=== PATIENT | male | born 1955 | race African-American/Black ===

== ENCOUNTER 2020-03-17 07:51 | Emergency (ER) | payer OTHER, MEDICAID ==
[~2020-03-17] VITALS: Ht 170.2 cm; Wt 95.3 kg
[2020-03-17 07:53] VITALS: BP 132/81
--- NOTE | 2020-03-17 08:00 | NUR ---
DR DEL ROSARIO AT BEDSIDE EVALUATING PT.
--- NOTE | 2020-03-17 08:04 | NUR ---
BIB BY [facility] [facility] FROM [facility] C/O RIGHT FACE SWELLING X THIS AM. PT AOX 4 , AFIBRILE , AMBULATORY WITH STEADY GAIT, DENIES SOB AND PAIN , SCE , CBS , FLAT SOFT ABDOMEN. MED HX: DM, HTN,HLD,SCHIZOPHRENIA, TOBACCO ABUSE, OBESITY, VIT D DEFICIENCY
--- NOTE | 2020-03-17 08:05 | NUR ---
PT AMBULATED TO ER BED 07.
[2020-03-17] MEDS ORDERED: NACL 0.9% 1,000 ML IV ONE (08:08)
[2020-03-17] MEDS ORDERED: FAMOTIDINE 20 MG/2 ML VIAL IVP ONE (08:10)
[2020-03-17] MEDS ORDERED: methylPREDNISolone SS 125 MG in WATER STERILE 2 ML IVP ONE (08:10)
[2020-03-17] MEDS ORDERED: diphenhydrAMINE 50 MG/ML VIAL IVP ONE (08:10)
[2020-03-17] MEDS ORDERED: WATER STERILE 10 ML MC ONE (08:19)
[2020-03-17] MEDS ORDERED: methylPREDNISolone SS 125 MG/2 ML VIAL ONE (08:19)
--- NOTE | 2020-03-17 08:25 | NUR ---
KIRSTIN WISE INSERTED IV AND ADMINISTERED MEDS.
[2020-03-17 08:36] LABS: BASOPHILS # (AUTO) 0.1 K/uL (0.00-0.22); BASOPHILS % (AUTO) 1.9 % (0.0-2.0); EOSINOPHILS # (AUTO) 0.1 K/uL (0-0.4); EOSINOPHILS % (AUTO) 1.3 % (0.0-4.0); HEMATOCRIT 29.6 % (36-52); HEMOGLOBIN 8.6 g/dL (12.0-18.0); LYMPHOCYTES # (AUTO) 1.6 K/uL (2.0-11.5); MEAN CORPUSCULAR HEMOGLOBIN 22 pg (27-31); MEAN CORPUSCULAR HGB CONC 29 g/dL (33-37); MONOCYTES # (AUTO) 0.4 K/uL (0.8-1.0); MONOCYTES % (AUTO) 5.9 % (1.7-9.3); NEUTROPHILS # (AUTO) 5.1 K/uL (1.8-7.7); NEUTROPHILS % (AUTO) 68.9 % (42.2-75.2); PLATELET COUNT (AUTO) 333 K/uL (140-450); RED BLOOD CELL COUNT(AUTO) 3.84 MIL/uL (4.20-6.10); RED CELL DISTRIBUTION WIDTH 18.5 % (11.6-13.7); WHITE BLOOD COUNT (AUTO) 7.3 K/uL (4.8-10.8)
--- NOTE | 2020-03-17 09:30 | NUR ---
PT AMBULATED TO RESTROOM WITH STEADY GAIT.
--- NOTE | 2020-03-17 09:35 | NUR ---
PT BACK TO BED.
--- NOTE | 2020-03-17 09:58 | NUR ---
PT COMFORTABLE IN BED SIDE RAILS UP X 1 AND LOCK.
--- NOTE | 2020-03-17 11:40 | NUR ---
PT COMFORTABLE IN BED WITH STABLE VS.
--- NOTE | 2020-03-17 11:42 | NUR ---
STARTED PLASMA TRASFUSION VERIFIED BAG WITH KIRSTIN SEP AND CONFIRMED.
--- NOTE | 2020-03-17 12:42 | NUR ---
FIRST UNIT OF PLASMA DONE PT WITH STABLE V/S NO COMPLAINT.
[2020-03-17 12:56] LABS: ANION GAP 18.1 (8-16); CARBON DIOXIDE 24.4 mmol/L (21-32); CREATININE 1.8 mg/dL (0.6-1.3); POTASSIUM 3.5 mmol/L (3.5-5.1)
--- NOTE | 2020-03-17 13:11 | NUR ---
STARTED 2ND UNIT OF PLASMA.
--- NOTE | 2020-03-17 13:11 | NUR ---
SECOND UNIT OF PLASMA VERIFIED AND CROSS CHECK WITH KIRSTIN HENDERSON .
--- NOTE | 2020-03-17 13:34 | NUR ---
GAVE REPORT TO KIRSTIN HENDERSON .
[2020-03-17 14:25] VITALS: BP 130/74
--- NOTE | 2020-03-17 14:27 | NUR ---
Patient discharged with v/s stable. Written and verbal after care instructions given and explained. Patient verbalized understanding. Ambulatory with to alf. All questions addressed prior to discharge. Advised to follow up with PMD. Michelle sanchez spoke to matilde to pickup pt at the [facility].
== END 2020-03-17 14:27 | disposition home or self-care (01) ==
LOC: MED 07:51
DX: T78.3XXA Angioneurotic edema, initial encounter (principal); F17.210 Nicotine dependence, cigarettes, uncomplicated; E11.9 Type 2 diabetes mellitus without complications; I10 Essential (primary) hypertension; E78.00 Pure hypercholesterolemia, unspecified; F20.89 Other schizophrenia
CPT/HCPCS: 36415; 80048; 85025; 86886; 86900; 86901; 96374; 96375; 99284; J1200; J2930; J3490; J7030; P9017; 86920

== ENCOUNTER 2022-08-26 21:44 | Emergency (ER) | payer OTHER, MEDICAID ==
[~2022-08-26] VITALS: Ht 180.3 cm; Wt 94.3 kg
[2022-08-26 21:53] VITALS: BP 138/87
--- NOTE | 2022-08-26 22:54 | NUR ---
Patient taken to bed 2.
--- NOTE | 2022-08-26 22:57 | NUR ---
Patient lying in bed, alert, chest rise and fall symmetrical, no c/o ain or s/s of discomfort, seizure pads in place.
--- NOTE | 2022-08-26 23:17 | NUR ---
Patient given sandwich and fluids. Patient eating and drinking fluids well.
[2022-08-26 23:37] LABS: BASOPHILS % (AUTO) 0.3 % (0.0-2.0); EOSINOPHILS % (AUTO) 0.3 % (0.0-4.0); HEMATOCRIT 45.3 % (36-52); HEMOGLOBIN 14.9 g/dL (12.0-18.0); LYMPHOCYTES # (AUTO) 0.8 K/uL (2.0-11.5); LYMPHOCYTES % (AUTO) 9.5 % (20.5-51.1); MEAN CORPUSCULAR HEMOGLOBIN 33 pg (27-31); MEAN CORPUSCULAR HGB CONC 33 g/dL (33-37); MEAN CORPUSCULAR VOLUME 98.7 fL (80-94); MONOCYTES # (AUTO) 0.2 K/uL (0.8-1.0); MONOCYTES % (AUTO) 2.9 % (1.7-9.3); NEUTROPHILS # (AUTO) 7.1 K/uL (1.8-7.7); PLATELET COUNT (AUTO) 235 K/uL (140-450); RED BLOOD CELL COUNT(AUTO) 4.58 MIL/uL (4.20-6.10); RED CELL DISTRIBUTION WIDTH 13.4 % (11.6-13.7); WHITE BLOOD COUNT (AUTO) 8.2 K/uL (4.8-10.8)
[2022-08-26 23:48] LABS: CHLORIDE 104 mmol/L (98-107); POTASSIUM 4.3 mmol/L (3.5-5.1); SODIUM SERUM 143 mmol/L (136-145)
--- NOTE | 2022-08-26 23:50 | NUR ---
Pt taken to CT
--- NOTE | 2022-08-26 23:52 | NUR ---
Patient lying in bed, alert, chest rise and fall symmetrical, no c/o ain or s/s of discomfort, seizure pads in place.
[2022-08-27 00:08] LABS: ALBUMIN 3.5 g/dL (3.4-5.0); ANION GAP 13.4 (8-16); ASPARTATE AMINOTRANSFERASE 18 U/L (15-37); CARBON DIOXIDE 29.9 mmol/L (21-32); CREATININE 1.2 mg/dL (0.6-1.3); GFR ARICAN-AMERICAN 78 mL/min (>90); GLUCOSE 118 mg/dL (74-106); TOTAL BILIRUBIN 0.2 mg/dL (0.0-1.0); UREA NITROGEN, BLOOD 10 mg/dL (7-18)
--- NOTE | 2022-08-27 00:32 | NUR ---
Patient lying in bed, alert, chest rise and fall symmetrical, no c/o ain or s/s of discomfort, seizure pads in place.
[2022-08-27 00:33] LABS: APPEARANCE,URINE CLEAR (CLEAR); BILIRUBIN,URINE NEGATIVE (NEGATIVE); BLOOD, URINE NEGATIVE (NEGATIVE); COLOR,URINE YELLOW (YELLOW); LEUKOCYTE ESTERASE ,URINE NEGATIVE (NEGATIVE); NITRITE, URINE NEGATIVE (NEGATIVE); UGLUCOSE TRACE (NEGATIVE)
--- NOTE | 2022-08-27 02:29 | NUR ---
Patient lying in bed, A/Ox4, chest rise and fall symmetrical, no c/o ain or s/s of discomfort, seizure pads in place.
--- NOTE | 2022-08-27 02:32 | NUR ---
Patient discharged with v/s stable. Written and verbal after care instructions given and explained. Patient verbalized understanding. Ambulatory with steady gait. All questions addressed prior to discharge. Advised to follow up with PMD.
[2022-08-27 02:35] VITALS: BP 133/72
== END 2022-08-27 02:35 | disposition home or self-care (01) ==
LOC: MED 21:44
DX: F10.129 Alcohol abuse with intoxication, unspecified (principal); S09.90XA Unspecified injury of head, initial encounter; R07.9 Chest pain, unspecified; Y90.9 Presence of alcohol in blood, level not specified
CPT/HCPCS: 36415; 70450; 71045; 80053; 81003; 83605; 84484; 85025; 87040; 87086; 93005; 99285; G0482

== ENCOUNTER 2023-09-29 13:03 | Inpatient (IN) | payer OTHER, MEDICAID ==
[~2023-09-29] VITALS: Ht 175.3 cm; Wt 75.7 kg
[2023-09-29] MEDS: LEVOFLOXACIN 750 MG/D5W PREMIX 150 ML IV SCH (00:15)
[2023-09-29 13:35] VITALS: BP 105/67; PULSE 88; RESP 17; TEMP 97.6; O2SAT 98
[2023-09-29 14:53] LABS: BASOPHILS % (AUTO) 0.2 % (0.0-2.0); HEMATOCRIT 32.2 % (36-52); LYMPHOCYTES # (AUTO) 1.2 K/uL (2.0-11.5); LYMPHOCYTES % (AUTO) 6.5 % (20.5-51.1); MEAN CORPUSCULAR HEMOGLOBIN 28 pg (27-31); MEAN CORPUSCULAR HGB CONC 31 g/dL (33-37); MEAN CORPUSCULAR VOLUME 90.1 fL (80-94); MONOCYTES # (AUTO) 1.4 K/uL (0.8-1.0); MONOCYTES % (AUTO) 7.6 % (1.7-9.3); NEUTROPHILS # (AUTO) 15.5 K/uL (1.8-7.7); NEUTROPHILS % (AUTO) 85.7 % (42.2-75.2); PLATELET COUNT (AUTO) 277 K/uL (140-450); RED BLOOD CELL COUNT(AUTO) 3.58 MIL/uL (4.20-6.10); RED CELL DISTRIBUTION WIDTH 18.6 % (11.6-13.7); WHITE BLOOD COUNT (AUTO) 18.1 K/uL (4.8-10.8)
[2023-09-29 15:44] LABS: ALBUMIN 2.4 g/dL (3.4-5.0); BILIRUBIN,DIRECT 0.3 mg/dL (0.0-0.3); TOTAL BILIRUBIN 0.6 mg/dL (0.0-1.0); TOTAL PROTEIN, SERUM 8.6 g/dL (6.4-8.2)
[2023-09-29 15:53] LABS: ANION GAP 14.9 (8-16); CALCIUM 9.5 mg/dL (8.5-10.1); CARBON DIOXIDE 27.5 mmol/L (21-32); CREATININE 1.1 mg/dL (0.6-1.3); POTASSIUM 4.4 mmol/L (3.5-5.1)
[2023-09-29 17:22] VITALS: O2SAT 98
[2023-09-29] MEDS: MIDAZOLAM 2 MG/2 ML VIAL IM ONE ×3 (17:39→19:28)
[2023-09-29] MEDS: OLANZapine 10 MG VIAL IM ONE (17:40)
[2023-09-29 18:18] LABS: FLU A ANTIGEN negative (NEGATIVE); FLU B ANTIGEN NEGATIVE (NEGATIVE)
[2023-09-29] MEDS ORDERED: OLANZapine 10 MG VIAL IM ONE (19:05)
[2023-09-29] MEDS ORDERED: diphenhydrAMINE 50 MG/ML VIAL IVP ONE (19:05)
[2023-09-29] MEDS ORDERED: diphenhydrAMINE 50 MG/ML VIAL IM ONE (19:15)
[2023-09-29] MEDS: NACL 0.9% 1,000 ML IV ONE ×2 (19:25→20:49)
[2023-09-29 19:30] VITALS: O2SAT 98
[2023-09-29] MEDS: diphenhydrAMINE 50 MG/ML VIAL IVP ONE (19:39)
[2023-09-29] MEDS: AZITHROMYCIN 500 MG in DEXTROSE 5% 250 ML IV ONE (21:15)
[2023-09-29] MEDS ORDERED: HYDROcodone/APAP 5/325 MG 1 TAB TAB PO PRN (21:35)
[2023-09-29] MEDS ORDERED: LORazepam 1 MG TAB PO PRN ×2 (21:35→21:45)
[2023-09-29] MEDS ORDERED: ZOLPIDEM 5 MG TAB PO PRN ×2 (21:35→21:45)
[2023-09-29] MEDS ORDERED: NACL 0.9% 1,000 ML IV SCH (21:35)
[2023-09-29] MEDS ORDERED: ONDANSETRON 4 MG/2 ML VIAL IVP PRN ×2 (21:35→21:45)
[2023-09-29] MEDS ORDERED: LEVOFLOXACIN 750 MG/D5W PREMIX 150 ML IV SCH (21:40)
[2023-09-29 22:00] VITALS: O2SAT 98
[2023-09-29] MEDS ORDERED: cefTRIAXone 1,000 MG VIAL ONE (23:02)
[2023-09-30] VITALS (7 sets, daily range): BP systolic 93–110; BP diastolic 67–79; PULSE 72–86; RESP 17–20; TEMP 96.9–98.4; O2SAT 81–98
[2023-09-30] MEDS ORDERED: AZITHROMYCIN 500 MG INJ VIAL IV ONE (00:07)
[2023-09-30 04:46] LABS: BASOPHILS % (AUTO) 0.2 % (0.0-2.0); EOSINOPHILS % (AUTO) 0.1 % (0.0-4.0); HEMATOCRIT 30.3 % (36-52); HEMOGLOBIN 9.6 g/dL (12.0-18.0); LYMPHOCYTES % (AUTO) 13.1 % (20.5-51.1); MEAN CORPUSCULAR HEMOGLOBIN 28 pg (27-31); MEAN CORPUSCULAR HGB CONC 32 g/dL (33-37); MONOCYTES # (AUTO) 0.6 K/uL (0.8-1.0); MONOCYTES % (AUTO) 8.5 % (1.7-9.3); NEUTROPHILS # (AUTO) 5.8 K/uL (1.8-7.7); NEUTROPHILS % (AUTO) 78.1 % (42.2-75.2); PLATELET COUNT (AUTO) 247 K/uL (140-450); RED CELL DISTRIBUTION WIDTH 18.1 % (11.6-13.7); WHITE BLOOD COUNT (AUTO) 7.4 K/uL (4.8-10.8)
[2023-09-30] MEDS: NACL 0.9% 1,000 ML IV SCH (05:00)
[2023-09-30] MEDS ORDERED: ALBU0.0912 IH (05:21)
[2023-09-30] MEDS ORDERED: METO25TA PO (05:21)
[2023-09-30] MEDS ORDERED: [UNRECOGNIZED DRUG - CODE] PO (05:21)
[2023-09-30] MEDS ORDERED: RISP0.5T3 PO (05:21)
[2023-09-30] MEDS ORDERED: QUET200T43 PO (05:21)
[2023-09-30] MEDS ORDERED: ACET-2619 PO (05:21)
[2023-09-30] MEDS ORDERED: FERR-21 PO (05:21)
[2023-09-30] MEDS ORDERED: DIVA250T PO (05:21)
[2023-09-30] MEDS ORDERED: PRAV20TA5 PO (05:21)
[2023-09-30] MEDS ORDERED: BENA20TA PO (05:21)
[2023-09-30] MEDS ORDERED: METF-346 PO (05:21)
[2023-09-30] MEDS ORDERED: IBUP-1842 PO (05:21)
[2023-09-30] MEDS ORDERED: AMYL-43 PO (05:21)
[2023-09-30 05:45] LABS: ALBUMIN 2.2 g/dL (3.4-5.0); ANION GAP 11.9 (8-16); CALCIUM 8.6 mg/dL (8.5-10.1); CARBON DIOXIDE 28.2 mmol/L (21-32); CREATININE 0.9 mg/dL (0.6-1.3); POTASSIUM 4.1 mmol/L (3.5-5.1); TOTAL BILIRUBIN 0.4 mg/dL (0.0-1.0); TOTAL PROTEIN, SERUM 7.6 g/dL (6.4-8.2)
[2023-09-30] MEDS: DOCUSATE SODIUM 100 MG GELCAP PO SCH (09:00)
[2023-09-30] MEDS ORDERED: DOCUSATE SODIUM 100 MG GELCAP PO SCH (09:00)
[2023-09-30 15:01] LABS: APPEARANCE,URINE CLEAR (CLEAR); BILIRUBIN,URINE NEGATIVE (NEGATIVE); BLOOD, URINE NEGATIVE (NEGATIVE); COLOR,URINE YELLOW (YELLOW); LEUKOCYTE ESTERASE ,URINE NEGATIVE (NEGATIVE); NITRITE, URINE NEGATIVE (NEGATIVE); PROTEIN,URINE NEGATIVE (NEGATIVE); UGLUCOSE NEGATIVE (NEGATIVE)
[2023-10-01] VITALS: BP 95/69; PULSE 81; RESP 16; TEMP 97.4; O2SAT 92
[2023-10-01 04:00] VITALS: BP 98/57; PULSE 78; PULSE 81; RESP 18; TEMP 98.6; O2SAT 94
[2023-10-01 04:07] VITALS: BP 98/57; PULSE 81; RESP 18; TEMP 98.6; O2SAT 94
[2023-10-01 06:43] LABS: BASOPHILS % (AUTO) 0.2 % (0.0-2.0); EOSINOPHILS % (AUTO) 0.1 % (0.0-4.0); HEMATOCRIT 25.7 % (36-52); LYMPHOCYTES # (AUTO) 0.8 K/uL (2.0-11.5); LYMPHOCYTES % (AUTO) 9.7 % (20.5-51.1); MEAN CORPUSCULAR HEMOGLOBIN 28 pg (27-31); MEAN CORPUSCULAR HGB CONC 31 g/dL (33-37); MEAN CORPUSCULAR VOLUME 89.5 fL (80-94); MONOCYTES % (AUTO) 12.3 % (1.7-9.3); NEUTROPHILS # (AUTO) 6.6 K/uL (1.8-7.7); NEUTROPHILS % (AUTO) 77.7 % (42.2-75.2); PLATELET COUNT (AUTO) 246 K/uL (140-450); RED BLOOD CELL COUNT(AUTO) 2.87 MIL/uL (4.20-6.10); RED CELL DISTRIBUTION WIDTH 18.2 % (11.6-13.7); WHITE BLOOD COUNT (AUTO) 8.5 K/uL (4.8-10.8)
[2023-10-01 07:05] LABS: ALBUMIN 1.9 g/dL (3.4-5.0); ANION GAP 9.4 (8-16); CALCIUM 8.5 mg/dL (8.5-10.1); CARBON DIOXIDE 29.6 mmol/L (21-32); TOTAL BILIRUBIN 0.4 mg/dL (0.0-1.0); TOTAL PROTEIN, SERUM 6.5 g/dL (6.4-8.2)
[2023-10-01 08:00] VITALS: BP 103/72; PULSE 69; PULSE 91; RESP 18; TEMP 97.8; O2SAT 98
[2023-10-01] MEDS: PANTOPRAZOLE 40 MG INJ VIAL IVP SCH (08:55)
[2023-10-01 12:07] LABS: AFP (TUMOR MARKER) <1.8 ng/mL (0.0-8.4); CARCINOEMBRYONIC AG 2.4 ng/mL (0.0-4.7)
[2023-10-01 16:00] VITALS: BP 108/76; PULSE 63; RESP 18; TEMP 98.3; O2SAT 95
[2023-10-01 20:00] VITALS: PULSE 84; RESP 18; O2SAT 99
[2023-10-02 04:00] VITALS: BP 116/75; PULSE 65; RESP 18; TEMP 98.9; O2SAT 94
[2023-10-02 07:03] LABS: BASOPHILS % (AUTO) 0.5 % (0.0-2.0); EOSINOPHILS % (AUTO) 0.6 % (0.0-4.0); HEMATOCRIT 27.7 % (36-52); HEMOGLOBIN 8.8 g/dL (12.0-18.0); LYMPHOCYTES % (AUTO) 14.7 % (20.5-51.1); MEAN CORPUSCULAR HEMOGLOBIN 28 pg (27-31); MEAN CORPUSCULAR HGB CONC 32 g/dL (33-37); MEAN CORPUSCULAR VOLUME 89.4 fL (80-94); MONOCYTES # (AUTO) 0.7 K/uL (0.8-1.0); MONOCYTES % (AUTO) 11.2 % (1.7-9.3); NEUTROPHILS # (AUTO) 4.8 K/uL (1.8-7.7); PLATELET COUNT (AUTO) 260 K/uL (140-450); RED CELL DISTRIBUTION WIDTH 18.2 % (11.6-13.7); WHITE BLOOD COUNT (AUTO) 6.5 K/uL (4.8-10.8)
[2023-10-02 07:31] LABS: ALBUMIN 2.1 g/dL (3.4-5.0); ANION GAP 12.5 (8-16); CALCIUM 8.8 mg/dL (8.5-10.1); CARBON DIOXIDE 29.1 mmol/L (21-32); POTASSIUM 3.6 mmol/L (3.5-5.1); TOTAL BILIRUBIN 0.5 mg/dL (0.0-1.0); TOTAL PROTEIN, SERUM 7.2 g/dL (6.4-8.2)
[2023-10-02 08:00] VITALS: PULSE 78; RESP 16; O2SAT 99
[2023-10-02 20:00] VITALS: BP 116/75; PULSE 85; RESP 18; TEMP 98.5; O2SAT 90; O2SAT 99
[2023-10-03 04:00] VITALS: BP 106/67; PULSE 68; RESP 18; TEMP 97.6; O2SAT 90
[2023-10-03 07:02] LABS: BASOPHILS % (AUTO) 0.4 % (0.0-2.0); EOSINOPHILS % (AUTO) 0.3 % (0.0-4.0); HEMATOCRIT 25.1 % (36-52); LYMPHOCYTES # (AUTO) 0.9 K/uL (2.0-11.5); LYMPHOCYTES % (AUTO) 14.4 % (20.5-51.1); MEAN CORPUSCULAR HEMOGLOBIN 28 pg (27-31); MEAN CORPUSCULAR HGB CONC 32 g/dL (33-37); MEAN CORPUSCULAR VOLUME 88.7 fL (80-94); MONOCYTES # (AUTO) 0.7 K/uL (0.8-1.0); MONOCYTES % (AUTO) 11.9 % (1.7-9.3); NEUTROPHILS # (AUTO) 4.6 K/uL (1.8-7.7); PLATELET COUNT (AUTO) 265 K/uL (140-450); RED BLOOD CELL COUNT(AUTO) 2.83 MIL/uL (4.20-6.10); WHITE BLOOD COUNT (AUTO) 6.2 K/uL (4.8-10.8)
[2023-10-03 07:32] LABS: ANION GAP 10.9 (8-16); CALCIUM 8.3 mg/dL (8.5-10.1); POTASSIUM 3.9 mmol/L (3.5-5.1); TOTAL BILIRUBIN 0.4 mg/dL (0.0-1.0); TOTAL PROTEIN, SERUM 6.5 g/dL (6.4-8.2)
[2023-10-03 08:00] VITALS: BP 98/73; PULSE 75; PULSE 77; RESP 18; TEMP 97.1; O2SAT 95
[2023-10-03 16:00] VITALS: BP 96/70; PULSE 75; RESP 18; TEMP 97.6; O2SAT 96
[2023-10-03 20:00] VITALS: BP 105/68; PULSE 71; RESP 18; TEMP 97; O2SAT 94
[2023-10-04 08:00] VITALS: BP 111/75; PULSE 74; PULSE 75; RESP 17; RESP 18; TEMP 98; O2SAT 95; O2SAT 96
[2023-10-04 08:18] LABS: BASOPHILS % (AUTO) 0.7 % (0.0-2.0); EOSINOPHILS % (AUTO) 0.1 % (0.0-4.0); HEMATOCRIT 25.6 % (36-52); HEMOGLOBIN 8.2 g/dL (12.0-18.0); LYMPHOCYTES # (AUTO) 0.9 K/uL (2.0-11.5); MEAN CORPUSCULAR HEMOGLOBIN 28 pg (27-31); MEAN CORPUSCULAR HGB CONC 32 g/dL (33-37); MEAN CORPUSCULAR VOLUME 88.6 fL (80-94); MONOCYTES # (AUTO) 0.8 K/uL (0.8-1.0); MONOCYTES % (AUTO) 12.1 % (1.7-9.3); NEUTROPHILS # (AUTO) 5.1 K/uL (1.8-7.7); NEUTROPHILS % (AUTO) 74.1 % (42.2-75.2); PLATELET COUNT (AUTO) 271 K/uL (140-450); RED BLOOD CELL COUNT(AUTO) 2.89 MIL/uL (4.20-6.10); RED CELL DISTRIBUTION WIDTH 18.8 % (11.6-13.7); WHITE BLOOD COUNT (AUTO) 6.9 K/uL (4.8-10.8)
[2023-10-04 09:46] LABS: ANION GAP 8.6 (8-16); CALCIUM 8.4 mg/dL (8.5-10.1); CARBON DIOXIDE 30.2 mmol/L (21-32); POTASSIUM 3.8 mmol/L (3.5-5.1)
[2023-10-04 09:55] LABS: ALBUMIN 2.1 g/dL (3.4-5.0); TOTAL BILIRUBIN 0.3 mg/dL (0.0-1.0); TOTAL PROTEIN, SERUM 6.7 g/dL (6.4-8.2)
[2023-10-04 16:00] VITALS: BP 117/84; PULSE 79; RESP 17; TEMP 98.5; O2SAT 97
[2023-10-04 20:00] VITALS: BP 144/78; PULSE 78; PULSE 95; RESP 18; TEMP 97.8; O2SAT 96
[2023-10-05 04:00] VITALS: BP 111/79; PULSE 88; RESP 18; TEMP 98.4; O2SAT 94
[2023-10-05 06:45] LABS: BASOPHILS % (AUTO) 0.4 % (0.0-2.0); EOSINOPHILS % (AUTO) 0.1 % (0.0-4.0); HEMATOCRIT 27.2 % (36-52); HEMOGLOBIN 8.7 g/dL (12.0-18.0); LYMPHOCYTES # (AUTO) 1.1 K/uL (2.0-11.5); LYMPHOCYTES % (AUTO) 13.5 % (20.5-51.1); MEAN CORPUSCULAR HEMOGLOBIN 29 pg (27-31); MEAN CORPUSCULAR HGB CONC 32 g/dL (33-37); MEAN CORPUSCULAR VOLUME 88.7 fL (80-94); MONOCYTES % (AUTO) 11.7 % (1.7-9.3); NEUTROPHILS # (AUTO) 6.1 K/uL (1.8-7.7); NEUTROPHILS % (AUTO) 74.3 % (42.2-75.2); PLATELET COUNT (AUTO) 277 K/uL (140-450); RED BLOOD CELL COUNT(AUTO) 3.07 MIL/uL (4.20-6.10); RED CELL DISTRIBUTION WIDTH 18.3 % (11.6-13.7); WHITE BLOOD COUNT (AUTO) 8.3 K/uL (4.8-10.8)
[2023-10-05 07:11] LABS: ANION GAP 10.3 (8-16); CALCIUM 8.5 mg/dL (8.5-10.1); CARBON DIOXIDE 28.6 mmol/L (21-32); CREATININE 0.9 mg/dL (0.6-1.3); POTASSIUM 3.9 mmol/L (3.5-5.1); TOTAL BILIRUBIN 0.3 mg/dL (0.0-1.0); TOTAL PROTEIN, SERUM 6.8 g/dL (6.4-8.2)
[2023-10-05 08:00] VITALS: BP 116/77; PULSE 80; RESP 18; TEMP 96.9; O2SAT 99
[2023-10-05 08:58] VITALS: PULSE 80; RESP 18; O2SAT 99
[2023-10-05 16:00] VITALS: BP 101/75; PULSE 79; RESP 18; TEMP 97.8; O2SAT 99
[2023-10-05 17:07] LABS: INR 1.19 (0.8-1.2); PARTIAL THROMBOPLASTIN TIME 32.8 secs (22-35.6); PROTHROMBIN TIME 12.4 secs (10.8-13.4)
[2023-10-05 20:00] VITALS: BP 96/63; PULSE 85; RESP 18; TEMP 97.5; O2SAT 92
[2023-10-06 04:00] VITALS: BP 126/79; PULSE 76; RESP 18; TEMP 98.2; O2SAT 98
[2023-10-06 07:12] LABS: BASOPHILS % (AUTO) 0.4 % (0.0-2.0); HEMATOCRIT 27.3 % (36-52); HEMOGLOBIN 8.8 g/dL (12.0-18.0); LYMPHOCYTES % (AUTO) 11.6 % (20.5-51.1); MEAN CORPUSCULAR HEMOGLOBIN 28 pg (27-31); MEAN CORPUSCULAR HGB CONC 32 g/dL (33-37); MEAN CORPUSCULAR VOLUME 88.2 fL (80-94); MONOCYTES # (AUTO) 0.8 K/uL (0.8-1.0); MONOCYTES % (AUTO) 9.1 % (1.7-9.3); NEUTROPHILS # (AUTO) 6.6 K/uL (1.8-7.7); NEUTROPHILS % (AUTO) 78.9 % (42.2-75.2); PLATELET COUNT (AUTO) 250 K/uL (140-450); RED BLOOD CELL COUNT(AUTO) 3.09 MIL/uL (4.20-6.10); RED CELL DISTRIBUTION WIDTH 18.5 % (11.6-13.7); WHITE BLOOD COUNT (AUTO) 8.4 K/uL (4.8-10.8)
[2023-10-06 07:21] LABS: ALBUMIN 2.2 g/dL (3.4-5.0); ANION GAP 11.3 (8-16); CALCIUM 8.5 mg/dL (8.5-10.1); CARBON DIOXIDE 27.7 mmol/L (21-32); TOTAL BILIRUBIN 0.3 mg/dL (0.0-1.0); TOTAL PROTEIN, SERUM 7.4 g/dL (6.4-8.2)
[2023-10-06 08:00] VITALS: BP 138/70; PULSE 75; RESP 18; TEMP 97.8; O2SAT 99
[2023-10-06] MEDS: MIDAZOLAM 2 MG/2 ML VIAL ONE (10:05)
[2023-10-06] MEDS: fentaNYL citrate 0.05 MG/ML VIAL ONE ×2 (10:05→10:06)
[2023-10-06] MEDS: LIDOCAINE 1% 500 MG/50 ML VIAL ONE (10:06)
[2023-10-06 15:29] VITALS: O2SAT 93
[2023-10-06 16:00] VITALS: BP 97/69; PULSE 82; RESP 18; TEMP 97.6; O2SAT 100
[2023-10-06] MEDS: HYDROcodone/APAP 5/325 MG 1 TAB TAB PO PRN (16:45)
[2023-10-06 20:00] VITALS: PULSE 95; RESP 20; O2SAT 96
[2023-10-07 04:00] VITALS: BP 101/68; PULSE 99; RESP 22; TEMP 97.3; O2SAT 96
[2023-10-07 07:08] LABS: BASOPHILS % (AUTO) 0.3 % (0.0-2.0); EOSINOPHILS % (AUTO) 0.1 % (0.0-4.0); HEMATOCRIT 26.4 % (36-52); HEMOGLOBIN 8.3 g/dL (12.0-18.0); LYMPHOCYTES # (AUTO) 1.2 K/uL (2.0-11.5); LYMPHOCYTES % (AUTO) 16.8 % (20.5-51.1); MEAN CORPUSCULAR HEMOGLOBIN 28 pg (27-31); MEAN CORPUSCULAR HGB CONC 32 g/dL (33-37); MEAN CORPUSCULAR VOLUME 88.5 fL (80-94); MONOCYTES # (AUTO) 0.7 K/uL (0.8-1.0); MONOCYTES % (AUTO) 9.4 % (1.7-9.3); NEUTROPHILS # (AUTO) 5.4 K/uL (1.8-7.7); NEUTROPHILS % (AUTO) 73.4 % (42.2-75.2); PLATELET COUNT (AUTO) 287 K/uL (140-450); RED BLOOD CELL COUNT(AUTO) 2.98 MIL/uL (4.20-6.10); RED CELL DISTRIBUTION WIDTH 18.7 % (11.6-13.7); WHITE BLOOD COUNT (AUTO) 7.3 K/uL (4.8-10.8)
[2023-10-07 07:21] LABS: ANION GAP 12.6 (8-16); CALCIUM 8.4 mg/dL (8.5-10.1); CARBON DIOXIDE 28.2 mmol/L (21-32); POTASSIUM 3.8 mmol/L (3.5-5.1); TOTAL BILIRUBIN 0.3 mg/dL (0.0-1.0); TOTAL PROTEIN, SERUM 6.8 g/dL (6.4-8.2)
[2023-10-07 08:00] VITALS: BP 120/76; PULSE 94; PULSE 98; RESP 18; RESP 20; TEMP 97.2; O2SAT 98
[2023-10-07] MEDS: MIDAZOLAM 2 MG/2 ML VIAL ONE (08:31)
[2023-10-07] MEDS: LIDOCAINE 1% 500 MG/50 ML VIAL ONE (08:31)
[2023-10-07] MEDS: fentaNYL citrate 0.05 MG/ML VIAL ONE (08:31)
[2023-10-07] MEDS: PIPERACILLIN/TAZOBACTAM 3.375 GM in DEXTROSE 5% 50 ML IV SCH (11:06)
[2023-10-07 12:00] VITALS: BP 104/64; PULSE 84; RESP 18; TEMP 98; O2SAT 97
[2023-10-07 16:00] VITALS: BP 102/65; PULSE 94; RESP 22; TEMP 98; O2SAT 98
[2023-10-07 20:00] VITALS: PULSE 75; RESP 16
[2023-10-08 04:00] VITALS: BP 100/65; PULSE 61; RESP 18; TEMP 98.8; O2SAT 100
[2023-10-08 07:12] LABS: BASOPHILS % (AUTO) 0.3 % (0.0-2.0); EOSINOPHILS % (AUTO) 0.2 % (0.0-4.0); HEMATOCRIT 25.8 % (36-52); HEMOGLOBIN 8.2 g/dL (12.0-18.0); LYMPHOCYTES # (AUTO) 1.2 K/uL (2.0-11.5); LYMPHOCYTES % (AUTO) 17.3 % (20.5-51.1); MEAN CORPUSCULAR HEMOGLOBIN 28 pg (27-31); MEAN CORPUSCULAR HGB CONC 32 g/dL (33-37); MEAN CORPUSCULAR VOLUME 87.8 fL (80-94); MONOCYTES # (AUTO) 0.7 K/uL (0.8-1.0); MONOCYTES % (AUTO) 9.9 % (1.7-9.3); NEUTROPHILS # (AUTO) 4.9 K/uL (1.8-7.7); NEUTROPHILS % (AUTO) 72.3 % (42.2-75.2); PLATELET COUNT (AUTO) 307 K/uL (140-450); RED BLOOD CELL COUNT(AUTO) 2.94 MIL/uL (4.20-6.10); RED CELL DISTRIBUTION WIDTH 18.9 % (11.6-13.7); WHITE BLOOD COUNT (AUTO) 6.8 K/uL (4.8-10.8)
[2023-10-08 07:41] LABS: ANION GAP 13.1 (8-16); CALCIUM 8.2 mg/dL (8.5-10.1); CARBON DIOXIDE 26.7 mmol/L (21-32); CREATININE 1.2 mg/dL (0.6-1.3); POTASSIUM 3.8 mmol/L (3.5-5.1); TOTAL BILIRUBIN 0.4 mg/dL (0.0-1.0); TOTAL PROTEIN, SERUM 6.7 g/dL (6.4-8.2)
[2023-10-08 08:00] VITALS: PULSE 73; RESP 18
[2023-10-08 12:00] VITALS: BP 100/65; PULSE 73; RESP 18; TEMP 98.8; O2SAT 100
[2023-10-08 20:00] VITALS: BP 134/68; PULSE 80; RESP 18; TEMP 97.6; O2SAT 97; O2SAT 98
[2023-10-09 04:00] VITALS: BP 100/60; PULSE 72; RESP 16; TEMP 98; O2SAT 96
[2023-10-09 08:00] VITALS: PULSE 60; RESP 18; O2SAT 99
[2023-10-09 12:00] VITALS: BP 100/60; PULSE 60; RESP 18; TEMP 98; O2SAT 99
[2023-10-09 20:00] VITALS: BP 106/70; PULSE 65; RESP 18; TEMP 97; O2SAT 90
[2023-10-10 04:00] VITALS: BP 102/76; PULSE 73; RESP 18; TEMP 97.2; O2SAT 90
[2023-10-10 07:26] LABS: BASOPHILS % (AUTO) 0.6 % (0.0-2.0); EOSINOPHILS % (AUTO) 0.4 % (0.0-4.0); HEMATOCRIT 28.1 % (36-52); HEMOGLOBIN 8.8 g/dL (12.0-18.0); LYMPHOCYTES # (AUTO) 1.4 K/uL (2.0-11.5); LYMPHOCYTES % (AUTO) 24.1 % (20.5-51.1); MEAN CORPUSCULAR HEMOGLOBIN 28 pg (27-31); MEAN CORPUSCULAR HGB CONC 31 g/dL (33-37); MEAN CORPUSCULAR VOLUME 88.7 fL (80-94); MONOCYTES # (AUTO) 0.5 K/uL (0.8-1.0); NEUTROPHILS # (AUTO) 3.9 K/uL (1.8-7.7); NEUTROPHILS % (AUTO) 66.9 % (42.2-75.2); PLATELET COUNT (AUTO) 318 K/uL (140-450); RED BLOOD CELL COUNT(AUTO) 3.16 MIL/uL (4.20-6.10); RED CELL DISTRIBUTION WIDTH 18.7 % (11.6-13.7); WHITE BLOOD COUNT (AUTO) 5.9 K/uL (4.8-10.8)
[2023-10-10 07:31] VITALS: PULSE 68; RESP 19; O2SAT 99
[2023-10-10 08:00] VITALS: BP 142/74; PULSE 71; RESP 18; TEMP 97.7; O2SAT 97
[2023-10-10 08:13] LABS: ALBUMIN 2.1 g/dL (3.4-5.0); ANION GAP 11.6 (8-16); CALCIUM 8.9 mg/dL (8.5-10.1); CARBON DIOXIDE 28.5 mmol/L (21-32); POTASSIUM 4.1 mmol/L (3.5-5.1); TOTAL BILIRUBIN 0.3 mg/dL (0.0-1.0); TOTAL PROTEIN, SERUM 6.4 g/dL (6.4-8.2)
[2023-10-10 16:00] VITALS: BP 129/61; PULSE 69; RESP 18; TEMP 97.3; O2SAT 99
[2023-10-10 20:00] VITALS: BP 94/62; PULSE 87; RESP 18; TEMP 97.9; O2SAT 96
[2023-10-11 04:00] VITALS: BP 96/64; PULSE 75; RESP 18; TEMP 98.1; O2SAT 95
[2023-10-11 07:47] LABS: ANION GAP 10.4 (8-16); CALCIUM 8.9 mg/dL (8.5-10.1); CARBON DIOXIDE 29.1 mmol/L (21-32); CREATININE 1.1 mg/dL (0.6-1.3); POTASSIUM 4.5 mmol/L (3.5-5.1); TOTAL BILIRUBIN 0.3 mg/dL (0.0-1.0); TOTAL PROTEIN, SERUM 6.4 g/dL (6.4-8.2)
[2023-10-11 08:00] VITALS: BP 86/53; PULSE 68; RESP 18; TEMP 97.1; O2SAT 98
[2023-10-11 08:36] LABS: BASOPHILS % (AUTO) 0.4 % (0.0-2.0); EOSINOPHILS % (AUTO) 0.4 % (0.0-4.0); HEMATOCRIT 28.2 % (36-52); HEMOGLOBIN 8.8 g/dL (12.0-18.0); LYMPHOCYTES # (AUTO) 1.2 K/uL (2.0-11.5); LYMPHOCYTES % (AUTO) 19.7 % (20.5-51.1); MEAN CORPUSCULAR HEMOGLOBIN 28 pg (27-31); MEAN CORPUSCULAR HGB CONC 31 g/dL (33-37); MEAN CORPUSCULAR VOLUME 89.4 fL (80-94); MONOCYTES # (AUTO) 0.4 K/uL (0.8-1.0); MONOCYTES % (AUTO) 6.2 % (1.7-9.3); NEUTROPHILS # (AUTO) 4.3 K/uL (1.8-7.7); NEUTROPHILS % (AUTO) 73.3 % (42.2-75.2); PLATELET COUNT (AUTO) 308 K/uL (140-450); RED BLOOD CELL COUNT(AUTO) 3.16 MIL/uL (4.20-6.10); WHITE BLOOD COUNT (AUTO) 5.9 K/uL (4.8-10.8)
[2023-10-11 11:13] VITALS: PULSE 78; RESP 19; O2SAT 99
[2023-10-11 16:00] VITALS: BP 90/61; PULSE 68; RESP 18; TEMP 98.1; O2SAT 98
[2023-10-11 20:00] VITALS: PULSE 68; RESP 18; O2SAT 98
[2023-10-12 04:00] VITALS: BP 90/61; PULSE 68; RESP 18; TEMP 98.1; O2SAT 98
[2023-10-12 07:14] LABS: BASOPHILS % (AUTO) 0.8 % (0.0-2.0); EOSINOPHILS % (AUTO) 0.8 % (0.0-4.0); HEMATOCRIT 26.9 % (36-52); HEMOGLOBIN 8.6 g/dL (12.0-18.0); LYMPHOCYTES # (AUTO) 1.4 K/uL (2.0-11.5); LYMPHOCYTES % (AUTO) 27.6 % (20.5-51.1); MEAN CORPUSCULAR HEMOGLOBIN 29 pg (27-31); MEAN CORPUSCULAR HGB CONC 32 g/dL (33-37); MEAN CORPUSCULAR VOLUME 89.9 fL (80-94); MONOCYTES # (AUTO) 0.3 K/uL (0.8-1.0); MONOCYTES % (AUTO) 5.7 % (1.7-9.3); NEUTROPHILS # (AUTO) 3.4 K/uL (1.8-7.7); NEUTROPHILS % (AUTO) 65.1 % (42.2-75.2); PLATELET COUNT (AUTO) 317 K/uL (140-450); RED BLOOD CELL COUNT(AUTO) 2.99 MIL/uL (4.20-6.10); RED CELL DISTRIBUTION WIDTH 20.1 % (11.6-13.7); WHITE BLOOD COUNT (AUTO) 5.2 K/uL (4.8-10.8)
[2023-10-12 07:32] VITALS: PULSE 69; RESP 19; O2SAT 97
[2023-10-12 07:41] LABS: ANION GAP 12.8 (8-16); CALCIUM 8.5 mg/dL (8.5-10.1); CARBON DIOXIDE 27.5 mmol/L (21-32); CREATININE 0.9 mg/dL (0.6-1.3); POTASSIUM 4.3 mmol/L (3.5-5.1); TOTAL BILIRUBIN 0.2 mg/dL (0.0-1.0); TOTAL PROTEIN, SERUM 6.7 g/dL (6.4-8.2)
[2023-10-12 08:00] VITALS: BP 89/58; PULSE 75; RESP 18; TEMP 97.2; O2SAT 92
[2023-10-12] MEDS ORDERED: MIDAZOLAM 5 MG/5 ML VIAL ONE (11:08)
[2023-10-12] MEDS ORDERED: fentaNYL citrate 0.05 MG/ML VIAL ONE (11:08)
[2023-10-12] MEDS ORDERED: LIDOCAINE 1% 500 MG/50 ML VIAL ONE (11:09)
[2023-10-12] MEDS ORDERED: PRO40I IVP (15:00)
[2023-10-12] MEDS ORDERED: HEPA500056 SUBQ (15:00)
[2023-10-12] MEDS ORDERED: PIPE1SOL IV (15:00)
== END 2023-10-12 18:32 | DRG 871 ==
LOC: MED 13:03 → MTU 21:35 → MED 21:40 → MTU 09-30 06:35
PROVIDERS: ADMIT Student in an Organized Health Care Education/Training Program; ATTEND Student in an Organized Health Care Education/Training Program
PROC: 0W9G3ZX Drainage of Peritoneal Cavity, Percutaneous Approach, Diagnostic (ICD-10-PCS; principal; 2023-10-12)
PROC: 0W9G30Z Drainage of Peritoneal Cavity with Drainage Device, Percutaneous Approach (ICD-10-PCS; 2023-10-12)
DX: A41.9 Sepsis, unspecified organism (principal); E43 Unspecified severe protein-calorie malnutrition; J18.9 Pneumonia, unspecified organism; K63.1 Perforation of intestine (nontraumatic); K65.1 Peritoneal abscess; R19.7 Diarrhea, unspecified; R19.00 Intra-abdominal and pelvic swelling, mass and lump, unspecified site; E11.9 Type 2 diabetes mellitus without complications; F17.210 Nicotine dependence, cigarettes, uncomplicated; D50.9 Iron deficiency anemia, unspecified; Z20.822 Contact with and (suspected) exposure to COVID-19; Z68.24 Body mass index [BMI] 24.0-24.9, adult
CPT/HCPCS: 36415; 71045; 75989; 80048; 80053; 80076; 81003; 82105; 82378; 83036; 83605; 83690; 84484; 85025; 85610; 85730; 86301; 87040; 87070; 87075; 87081; 87205; 88104; 88305; 93005; 96365; 96368; 96372; 96375; 97116; 97163-GP; 97530; 99291; C9113; J0456; J0696; J1200; J1644; J1956; J2001; J2250; J2543; J3010; J3490; J7060; Q0092; Q9967

== ENCOUNTER 2023-10-16 09:47 | Inpatient (IN) | payer OTHER, MEDICAID ==
[~2023-10-16] VITALS: Ht 182.9 cm; Wt 72.6 kg
[~2023-10-16 09:47] MED LIST: ACET-2619 PO; ALBU0.0912 IH; AMYL-43 PO; BENA20TA PO; DIVA250T PO; FERR-21 PO; HEPA500056 SUBQ; IBUP-1842 PO; METF-346 PO; METO25TA PO; PIPE1SOL IV; PRAV20TA5 PO; PRO40I IVP; QUET200T43 PO; RISP0.5T3 PO; [UNRECOGNIZED DRUG - CODE] PO
[2023-10-16 09:50] VITALS: BP 108/80; PULSE 68; RESP 18; TEMP 98.6; O2SAT 93
[2023-10-16 10:36] LABS: BASOPHILS % (AUTO) 0.4 % (0.0-2.0); EOSINOPHILS % (AUTO) 0.4 % (0.0-4.0); HEMATOCRIT 29.8 % (36-52); HEMOGLOBIN 9.4 g/dL (12.0-18.0); LYMPHOCYTES # (AUTO) 1.2 K/uL (2.0-11.5); LYMPHOCYTES % (AUTO) 13.1 % (20.5-51.1); MEAN CORPUSCULAR HEMOGLOBIN 29 pg (27-31); MEAN CORPUSCULAR HGB CONC 32 g/dL (33-37); MONOCYTES # (AUTO) 0.3 K/uL (0.8-1.0); MONOCYTES % (AUTO) 3.7 % (1.7-9.3); NEUTROPHILS # (AUTO) 7.7 K/uL (1.8-7.7); NEUTROPHILS % (AUTO) 82.4 % (42.2-75.2); PLATELET COUNT (AUTO) 316 K/uL (140-450); RED CELL DISTRIBUTION WIDTH 22.2 % (11.6-13.7); WHITE BLOOD COUNT (AUTO) 9.4 K/uL (4.8-10.8)
[2023-10-16 10:49] LABS: INR 0.99 (0.8-1.2); PARTIAL THROMBOPLASTIN TIME 25.4 secs (22-35.6); PROTHROMBIN TIME 10.4 secs (10.8-13.4)
[2023-10-16 10:53] LABS: ANION GAP 16.7 (8-16); CALCIUM 9.1 mg/dL (8.5-10.1); CARBON DIOXIDE 24.5 mmol/L (21-32); CREATININE 1.1 mg/dL (0.6-1.3); POTASSIUM 4.2 mmol/L (3.5-5.1)
[2023-10-16 11:02] LABS: ALANINE AMINOTRANSFERASE 27 U/L (12-78); ALBUMIN 2.3 g/dL (3.4-5.0); ALKALINE PHOSPHATASE 87 U/L (50-136); ASPARTATE AMINOTRANSFERASE 13 U/L (15-37); BILIRUBIN,DIRECT 0.1 mg/dL (0.0-0.3); TOTAL BILIRUBIN 0.2 mg/dL (0.0-1.0); TOTAL PROTEIN, SERUM 7.4 g/dL (6.4-8.2)
[2023-10-16 11:08] LABS: LACTIC ACID 3.2 mmol/L (0.4-2.0)
[2023-10-16] MEDS ORDERED: PIPERACILLIN/TAZOBACTAM 3.375 GM VIAL IV ONE ×2 (11:17→21:24)
[2023-10-16] MEDS: PIPERACILLIN/TAZOBACTAM 3.375 GM in DEXTROSE 5% 50 ML IV ONE (11:49)
[2023-10-16] MEDS: NACL 0.9% 1,000 ML IV ONE ×2 (11:51→15:22)
[2023-10-16] MEDS ORDERED: VANCOMYCIN 1,000 MG VIAL ONE (12:23)
[2023-10-16] MEDS ORDERED: FERR325E14 PO (13:20)
[2023-10-16] MEDS ORDERED: LACT1CAP92 PO (13:20)
[2023-10-16] MEDS ORDERED: OLANZapine 10 MG VIAL IM ONE (13:20)
[2023-10-16] MEDS ORDERED: ACET-2619 PO (13:20)
[2023-10-16] MEDS ORDERED: HEPA500056 SUBQ (13:20)
[2023-10-16] MEDS ORDERED: DOCU-299 PO (13:20)
[2023-10-16] MEDS ORDERED: IBUP-2213 PO (13:20)
[2023-10-16] MEDS ORDERED: BENA20TA PO (13:20)
[2023-10-16] MEDS ORDERED: AMYL-43 PO (13:24)
[2023-10-16] MEDS ORDERED: PRAV20TA5 PO (13:24)
[2023-10-16] MEDS ORDERED: PANT40EC PO (13:24)
[2023-10-16] MEDS ORDERED: QUET200T PO (13:24)
[2023-10-16] MEDS ORDERED: RISP0.5T3 PO (13:24)
[2023-10-16] MEDS: LORazepam 2 MG/ML VIAL IM STA (13:46)
[2023-10-16] MEDS: diphenhydrAMINE 50 MG/ML VIAL IM ONE (13:50)
[2023-10-16] MEDS: HALOPERIDOL IM 5 MG/ML VIAL IM ONE (13:50)
[2023-10-16] MEDS: VANCOMYCIN 1,000 MG in DEXTROSE 5% 250 ML IV ONE (15:09)
[2023-10-16] MEDS ORDERED: DEXT 5% / NACL 0.45% 1,000 ML IV SCH (20:15)
[2023-10-16] MEDS ORDERED: ACETAMINOPHEN 325 MG TAB PO PRN ×2 (20:15→20:30)
[2023-10-16] MEDS ORDERED: HYDROcodone/APAP 5/325 MG 1 TAB TAB PO PRN ×2 (20:15→20:30)
[2023-10-16] MEDS ORDERED: MORPHINE SULFATE 4 MG/ML SYR IVP PRN ×2 (20:15→20:30)
[2023-10-16] MEDS ORDERED: VANCOMYCIN PER PHARMACY MC PRN ×2 (20:25→20:30)
[2023-10-16] MEDS ORDERED: PIPERACILLIN/TAZOBACTAM 3.375 GM in DEXTROSE 5% 50 ML IV SCH (21:00)
[2023-10-16] MEDS: PIPERACILLIN/TAZOBACTAM 3.375 GM in DEXTROSE 5% 50 ML IV SCH (21:00)
[2023-10-16 23:35] VITALS: BP 99/61; PULSE 95; RESP 18; TEMP 97.1; O2SAT 99
[2023-10-16] MEDS: DEXT 5% / NACL 0.45% 1,000 ML IV SCH (23:47)
[2023-10-17] MEDS: VANCOMYCIN 1GM/DEXT 5% PREMIX 200 ML IV SCH (02:04)
[2023-10-17] MEDS: VANCOMYCIN 1,000 MG VIAL ONE (02:04)
[2023-10-17 04:00] VITALS: BP 100/67; PULSE 89; RESP 18; TEMP 97.2; O2SAT 99
[2023-10-17] MEDS: PIPERACILLIN/TAZOBACTAM 3.375 GM VIAL IV ONE (04:08)
[2023-10-17 08:52] VITALS: BP 93/75; PULSE 78; RESP 18; TEMP 97; O2SAT 97
[2023-10-17 08:53] VITALS: PULSE 78; RESP 18; O2SAT 97
[2023-10-17] MEDS: VANCOMYCIN 1,000 MG in DEXTROSE 5% 250 ML IV SCH (10:16)
[2023-10-17 15:52] VITALS: BP 111/85; PULSE 82; RESP 18; TEMP 98.1; O2SAT 95
[2023-10-17 20:00] VITALS: BP 131/80; PULSE 84; RESP 18; TEMP 98.1; O2SAT 97
[2023-10-17] MEDS: LACTULOSE 20 GM/30 ML UDC PO SCH (20:17)
[2023-10-18 06:15] LABS: BASOPHILS # (AUTO) 0.1 K/uL (0.00-0.22); BASOPHILS % (AUTO) 0.8 % (0.0-2.0); EOSINOPHILS # (AUTO) 0.1 K/uL (0-0.4); EOSINOPHILS % (AUTO) 2.2 % (0.0-4.0); HEMATOCRIT 29.8 % (36-52); HEMOGLOBIN 9.6 g/dL (12.0-18.0); LYMPHOCYTES # (AUTO) 1.3 K/uL (2.0-11.5); MEAN CORPUSCULAR HEMOGLOBIN 30 pg (27-31); MEAN CORPUSCULAR HGB CONC 32 g/dL (33-37); MEAN CORPUSCULAR VOLUME 92.2 fL (80-94); MONOCYTES # (AUTO) 0.3 K/uL (0.8-1.0); MONOCYTES % (AUTO) 5.6 % (1.7-9.3); NEUTROPHILS # (AUTO) 4.4 K/uL (1.8-7.7); NEUTROPHILS % (AUTO) 70.4 % (42.2-75.2); PLATELET COUNT (AUTO) 282 K/uL (140-450); RED BLOOD CELL COUNT(AUTO) 3.23 MIL/uL (4.20-6.10); RED CELL DISTRIBUTION WIDTH 20.8 % (11.6-13.7); WHITE BLOOD COUNT (AUTO) 6.2 K/uL (4.8-10.8)
[2023-10-18 06:37] LABS: ALBUMIN 1.9 g/dL (3.4-5.0); ANION GAP 15.4 (8-16); CALCIUM 8.2 mg/dL (8.5-10.1); CARBON DIOXIDE 23.2 mmol/L (21-32); POTASSIUM 4.6 mmol/L (3.5-5.1); TOTAL BILIRUBIN 0.5 mg/dL (0.0-1.0); TOTAL PROTEIN, SERUM 6.1 g/dL (6.4-8.2)
[2023-10-18] MEDS ORDERED: MORPHINE SULFATE 2 MG/ML SYR IVP PRN (07:35)
[2023-10-18 08:00] VITALS: BP 95/66; PULSE 75; RESP 18; TEMP 97.4; O2SAT 99
[2023-10-18 16:00] VITALS: BP 95/66; PULSE 75; RESP 18; TEMP 97.4; O2SAT 99
[2023-10-18 17:51] VITALS: BP 98/62; PULSE 69; RESP 18; TEMP 97.6
[2023-10-18 20:00] VITALS: BP 105/61; PULSE 79; RESP 16; RESP 18; TEMP 98.3; O2SAT 95
[2023-10-19 06:49] LABS: BASOPHILS % (AUTO) 0.7 % (0.0-2.0); EOSINOPHILS # (AUTO) 0.1 K/uL (0-0.4); HEMATOCRIT 29.8 % (36-52); HEMOGLOBIN 9.6 g/dL (12.0-18.0); LYMPHOCYTES # (AUTO) 1.1 K/uL (2.0-11.5); LYMPHOCYTES % (AUTO) 23.3 % (20.5-51.1); MEAN CORPUSCULAR HEMOGLOBIN 30 pg (27-31); MEAN CORPUSCULAR HGB CONC 32 g/dL (33-37); MEAN CORPUSCULAR VOLUME 91.8 fL (80-94); MONOCYTES # (AUTO) 0.3 K/uL (0.8-1.0); MONOCYTES % (AUTO) 6.6 % (1.7-9.3); NEUTROPHILS # (AUTO) 3.2 K/uL (1.8-7.7); NEUTROPHILS % (AUTO) 67.4 % (42.2-75.2); PLATELET COUNT (AUTO) 283 K/uL (140-450); RED BLOOD CELL COUNT(AUTO) 3.25 MIL/uL (4.20-6.10); RED CELL DISTRIBUTION WIDTH 20.4 % (11.6-13.7); WHITE BLOOD COUNT (AUTO) 4.7 K/uL (4.8-10.8)
[2023-10-19 07:04] LABS: ALBUMIN 2.1 g/dL (3.4-5.0); ANION GAP 11.2 (8-16); CALCIUM 8.5 mg/dL (8.5-10.1); CARBON DIOXIDE 28.1 mmol/L (21-32); POTASSIUM 4.3 mmol/L (3.5-5.1); TOTAL BILIRUBIN 0.4 mg/dL (0.0-1.0)
[2023-10-19 07:44] LABS: TOTAL PROTEIN, SERUM 6.4 g/dL (6.4-8.2)
[2023-10-19 08:00] VITALS: BP 103/76; PULSE 66; RESP 18; TEMP 97.9; O2SAT 100; O2SAT 95
[2023-10-19 16:00] VITALS: BP 109/78; PULSE 72; RESP 18; TEMP 97.6; O2SAT 99
[2023-10-19] MEDS ORDERED: RIS1 PO (18:15)
[2023-10-19 18:42] VITALS: BP 109/78; PULSE 72; RESP 18; TEMP 97.6
[2023-10-19] MEDS: QUEtiapine FUMARATE 100 MG TAB PO SCH (20:22)
[2023-10-19] MEDS: DIVALPROEX 250 MG TABEC PO SCH (20:22)
[2023-10-19] MEDS: risperiDONE 1 MG TAB PO SCH (20:23)
== END 2023-10-19 21:50 | disposition short-term general hospital (02) | DRG 871 ==
LOC: MED 09:47 → MMU 20:24 → MTU 20:24 → MERGE 20:24 → MED 20:24 → MTU 22:03
PROVIDERS: ADMIT Family Medicine; ATTEND Family Medicine
DX: A41.9 Sepsis, unspecified organism (principal); E43 Unspecified severe protein-calorie malnutrition; K68.12 Psoas muscle abscess; T85.628A Displacement of other specified internal prosthetic devices, implants and grafts, initial encounter; E87.20 Acidosis, unspecified; Z68.21 Body mass index [BMI] 21.0-21.9, adult; X58.XXXA Exposure to other specified factors, initial encounter; F25.0 Schizoaffective disorder, bipolar type
CPT/HCPCS: 36415; 80048; 80053; 80076; 80202; 82378; 83605; 84484; 85025; 85610; 85730; 87040; 87081; 93005; 96361; 96365; 96367; 99285; J1200; J1630; J2060; J2543; J3370; J3490; J7060; Q9967